=== PATIENT | male | born 1980 | race Caucasian/White ===

== ENCOUNTER 2019-05-26 09:21 | Outpatient (CLI) | payer BC ==
--- NOTE | 2019-05-28 16:20 | XRAY Report ---
Reason: SOB COUGH X 2 MONTHS Procedure Date: 05/26/2019 Accession Number: [id number] / [id number] Procedure: XRS - Chest 2 View X-Ray CPT Code: 20222 FULL RESULT: EXAM: CHEST RADIOGRAPHY EXAM DATE: 05/26/2019 09:34 AM. CLINICAL HISTORY: Shortness of breath and cough for last 2 months. COMPARISON: None. TECHNIQUE: 2 views. FINDINGS: Lungs/Pleura: No focal opacities evident. No pleural effusion. No pneumothorax. Normal volumes. Mediastinum: Heart and mediastinal contours are unremarkable. Other: None. IMPRESSION: Normal 2-view chest radiography. [facility]
== END 2019-05-26 09:22 | disposition home or self-care (01) ==
LOC: DI.S 09:21
PROVIDERS: ATTEND Family Medicine
DX: R05 Cough (principal); Z77.090 Contact with and (suspected) exposure to asbestos
CPT/HCPCS: 71046

== ENCOUNTER 2020-10-28 07:00 | Outpatient (CLI) | payer BC ==
--- NOTE | 2020-10-28 10:47 | Ultrasound Report ---
PROCEDURE: Abdomen Complete INDICATIONS: RUQ ABD PAIN TECHNIQUE: Real-time scanning was performed of the abdominal and retroperitoneal organs, with image documentatio n. COMPARISON: None. FINDINGS: Liver: Liver is normal in size and minimally heterogeneously hyperechoic in echotexture. Gallbladder: Gallbladder is normal without stones, sludge, wall thickening, pericholecystic fluid, or Aguirre sign Biliary ducts: Intrahepatic bile ducts are non-dilated. Extrahepatic bile duct caliber measures 3 m m. Normal is 6-7 mm or less in diameter, or 10 mm or less post-cholecystectomy. Pancreas: Visualized portions of the pancreas are sonographically normal. Spleen: Spleen is mildly enlarged in size measuring 13.7 x 14.2 cm, and slightly heterogeneous in ec hotexture. Kidneys: Kidneys are normal in size and echotexture. Right kidney measures 11.8 cm long; left kidne y measures 12.0 cm long. No hydronephrosis or nephrolithiasis. No solid masses. Aorta: Visualized aorta is normal in caliber at less than 3 cm. Iliacs: Proximal common iliac arteries are normal in caliber at less than 2.5 cm. IVC: Intrahepatic inferior vena cava is patent. Miscellaneous: No free abdominal fluid. IMPRESSION: 1. Minor hepatic steatosis. 2. Mild splenomegaly with slightly heterogeneous echotexture. This is nonspecific and could potential ly be physiologic for the patient based on height. Correlate clinically. 3. Normal gallbladder. Reviewed by: Mali De La Vega MD on 10/28/2020 10:46 AM PST Approved by: Mali De La Vega MD on 10/28/2020 10:46 AM PST Station ID: [id number]
== END 2020-10-28 07:01 | disposition home or self-care (01) ==
LOC: DI 07:00
PROVIDERS: ATTEND Family Medicine
DX: R10.11 Right upper quadrant pain (principal); R10.13 Epigastric pain; K76.0 Fatty (change of) liver, not elsewhere classified; R16.1 Splenomegaly, not elsewhere classified
CPT/HCPCS: 76700; 78227; J7040

== ENCOUNTER 2020-10-28 07:58 | Outpatient (CLI) | payer BC ==
[2020-10-28] MEDS ORDERED: SINCALIDE 5 MCG VIAL ONE (10:09)
--- NOTE | 2020-10-28 12:19 | Nuclear Medicine Report ---
PROCEDURE: Hepatobiliary HIDA w/ Rx INDICATIONS: RUQ PAIN RADIOPHARMACEUTICAL: 4.85 mCi Tc-99m meprofenin i.v. and 2.09 ?g sincalide i.v. TECHNIQUE: Following intravenous administration of Tc-99m meprofenin, sequential anterior abdominal images were obtained through the minutes. To evaluate the contractile response of the gallbladder in response to Cholecystokinin (CCK), 2.09 microgram sincalide (0.02 ?g/kg) was administered by slow in travenous infusion approximately 30 minutes after the administration of the radiopharmaceutical. Seq uential imaging was continued for 30 minutes after the start of CCK infusion. Gallbladder ejection f raction was calculated. COMPARISON: Ultrasound abdomen, 10/28/2020. FINDINGS: Biliary scan: There is normal tracer uptake and excretion by the liver. There is normal visualizati on of the intrahepatic ducts, common bile duct, and gallbladder. There is normal tracer transit into the duodenum. CCK stimulation: There is normal contractile response of the gallbladder to CCK infusion. The calcu lated gallbladder ejection fraction is 87%; normal values are above 35%. IMPRESSION: 1. Normal biliary imaging study. 2. Normal contractile response of gallbladder to CCK infusion.. Reviewed by: Pavithra Chiang MD on 10/28/2020 12:18 PM PST Approved by: Pavithra Chiang MD on 10/28/2020 12:18 PM PST Station ID: [id number]
[2020-10-28] MEDS ORDERED: SINCALIDE 2.09 MCG in SODIUM CHLORIDE 0.9% 50 ML IV ONE (12:28)
== END 2020-10-28 07:59 | disposition home or self-care (01) ==
LOC: DI 07:58
PROVIDERS: ATTEND Family Medicine
DX: R10.11 Right upper quadrant pain (principal); R10.13 Epigastric pain
CPT/HCPCS: 78227

== ENCOUNTER 2021-05-02 07:17 | Outpatient (CLI) | payer BC ==
[2021-05-02 14:47] LABS: BASOPHILS # (AUTO) 0.1 10^3/uL (0.0-0.1); BASOPHILS % (AUTO) 1.9 %; EOSINOPHILS # (AUTO) 0.2 10^3/uL (0.0-0.7); EOSINOPHILS % (AUTO) 4.5 %; HCT - HEMATOCRIT 43.1 % (42.0-52.0); HGB - HEMOGLOBIN 13.9 g/dL (14.0-18.0); LYMPHOCYTES # (AUTO) 1.3 10^3/uL (1.5-3.5); LYMPHOCYTES % (AUTO) 31.3 %; MEAN CORPUSCULAR HEMOGLOBIN 31.1 pg (27.0-31.0); MEAN CORPUSCULAR HGB CONC 32.3 g/dL (32.0-36.0); MEAN CORPUSCULAR VOLUME 96.4 fL (80.0-94.0); MEAN PLATELET VOLUME 12.1 fL (7.4-11.4); MONOCYTES # (AUTO) 0.5 10^3/uL (0.0-1.0); MONOCYTES % (AUTO) 10.8 %; NEUTROPHILS # (AUTO) 2.2 10^3/uL (1.5-6.6); NEUTROPHILS % (AUTO) 50.8 %; PLT - PLATELET COUNT 173 10^3/uL (130-450); RED BLOOD COUNT 4.47 10^6/uL (4.70-6.10); RED CELL DISTRIBUTION WIDTH 12.7 % (12.0-15.0); WHITE BLOOD COUNT 4.3 x10^3/uL (4.8-10.8)
[2021-05-02 15:12] LABS: ALBUMIN 4.6 g/dL (3.2-5.5); ALBUMIN/GLOBULIN RATIO 1.6 (1.0-2.2); ALKALINE PHOSPHATASE 45 IU/L (42-121); ALT ALANINE AMINOTRANSFERASE 17 IU/L (10-60); AST ASPARTATE AMINOTRANSFERASE 21 IU/L (10-42); BILIRUBIN,DIRECT 0.2 mg/dL (0.1-0.5); BILIRUBIN,TOTAL 1.6 mg/dL (0.2-1.0); BUN - BLOOD UREA NITROGEN 15 mg/dL (6-20); CALCIUM 9.2 mg/dL (8.5-10.3); CARBON DIOXIDE - CO2 28 mmol/L (21-32); CHLORIDE 102 mmol/L (101-111); CHOL/HDL RATIO 3.5 (<5.0); CHOLESTEROL 198 mg/dL; CREATININE 0.7 mg/dL (0.6-1.2); GFR - MDRD 124 (>89); GLUCOSE 98 mg/dL (70-100); HDL CHOLESTEROL 56 mg/dL; LDL CHOLESTEROL,CALCULATED 121 mg/dL; LDL/HDL RATIO 2.2 (<3.6); POTASSIUM 3.9 mmol/L (3.5-5.0); SODIUM 139 mmol/L (135-145); TOTAL PROTEIN 7.4 g/dL (6.7-8.2); TRIGLYCERIDES 104 mg/dL; VLDL CHOLESTEROL 21 mg/dL
[2021-05-02 15:18] LABS: THYROID STIMULATING HORMONE 4.56 uIU/mL (0.34-5.60)
[2021-05-02 15:20] LABS: FREE T3 3.27 pg/mL (2.5-3.9); FREE T4 (FREE THYROXINE) 0.76 ng/dL (0.58-1.64)
[2021-05-02 15:25] LABS: FERRITIN 50.6 ng/mL (23.9-336.2)
== END 2021-05-02 07:18 | disposition home or self-care (01) ==
LOC: LAB.S 07:17
PROVIDERS: ATTEND Family Medicine
DX: E78.00 Pure hypercholesterolemia, unspecified (principal); K82.8 Other specified diseases of gallbladder; R10.9 Unspecified abdominal pain; E55.9 Vitamin D deficiency, unspecified; R53.83 Other fatigue; E03.9 Hypothyroidism, unspecified
CPT/HCPCS: 36415; 80053; 80061; 82248; 82306; 82626; 82728; 83721; 84439; 84443; 84480; 84481; 85025

== ENCOUNTER 2024-04-07 09:31 | Outpatient (CLI) | payer BC ==
--- NOTE | 2024-04-07 09:44 | XRAY Report ---
PROCEDURE: Chest 2V INDICATIONS: HEMOPTYSIS TECHNIQUE: 2 views of the chest were acquired. COMPARISON: 05/26/2019. FINDINGS: Surgical changes and devices: None. Lungs and pleura: No pleural effusions or pneumothorax. Lungs are clear. Mediastinum: Mediastinal contours appear normal. Heart size is normal. Bones and chest wall: No suspicious bony lesions. Overlying soft tissues appear unremarkable. IMPRESSION: No acute cardiopulmonary process. Reviewed by: Gualberto Meza MD on 04/07/2024 9:43 AM PDT Approved by: Gualberto Meza MD on 04/07/2024 9:43 AM PDT Station ID: [id number]
== END 2024-04-07 09:32 | disposition home or self-care (01) ==
LOC: DI.S 09:31
PROVIDERS: ATTEND Family Medicine
DX: R04.2 Hemoptysis (principal)